=== PATIENT | male | born 1960 | race Caucasian/White ===

== ENCOUNTER 2016-12-08 15:28 | Emergency (ER) | payer OTHER ==
[2016-12-08 15:44] VITALS: BP 151/97
--- NOTE | 2016-12-08 16:53 | UC ---
Throat Pain/Nasal Giovanny HPI - HPI Summary HPI Summary: This is a 56 yo gentleman with HTN and GAIL who presented with a 1d h/o nasal congestion. He has a mild ST and cough. Some chills last night. No SOB. No rash. No abd pain, n/v. - History of Current Complaint Chief Complaint: UCRespiratory Stated Complaint: SINUS PAIN - Allergies/Home Medications Allergies/Adverse Reactions: Allergies Allergy/AdvReac Type Severity Reaction Status Date / Time No Known Allergies Allergy Verified 12/08/16 15:45 PMH/Surg Hx/FS Hx/Imm Hx Previously Healthy: No - GAIL, ADD Cardiovascular History: Hypertension - Surgical History Surgical History: Yes Surgery Procedure, Year, and Place: Veins. Tonsils - Social History Alcohol Use: None Substance Use Type: None Smoking Status (MU): Never Smoked Tobacco Review of Systems Constitutional: Chills Skin: Negative Eyes: Negative ENT: Sinus Congestion, Sinus Pain/Tenderness Respiratory: Negative Cardiovascular: Negative Gastrointestinal: Negative Genitourinary: Negative Motor: Negative Neurovascular: Negative Musculoskeletal: Negative Neurological: Negative Psychological: Negative All Other Systems Reviewed And Are Negative: Yes Physical Exam Triage Information Reviewed: Yes Appearance: Well-Appearing Vital Signs: Initial Vital Signs Temp 99.4 F 12/08/16 15:41 Pulse 85 12/08/16 15:41 Resp 12 12/08/16 15:41 BP 151/97 12/08/16 15:41 Pulse Ox 97 12/08/16 15:41 Vital Signs Reviewed: Yes ENT: Positive: Pharynx normal, Nasal drainage, TMs normal, Other: - mild maxillary sinus TTP bilaterally Neck: Positive: Supple, Nontender, No Lymphadenopathy Respiratory: Positive: Lungs clear, Normal breath sounds. Negative: Crackles, Rhonchi, Wheezing Cardiovascular: Positive: RRR, No Murmur Throat Pain/Nasal Course/Dx - Course Course Of Treatment: This is a 56 yo gentleman with HTN and GAIL who presented with c/o nasal congestion and sinus pressure for 24 hours. Exam benign. Likely viral URI. Recommend symptomatic care, but avoid stimulant decongestants due to his HTN. - Differential Dx/Diagnosis Differential Diagnosis/HQI/PQRI: Pharyngitis, Sinusitis, Tonsillitis, URI Provider Diagnoses: 1. URI Discharge - Discharge Plan Condition: Stable Disposition: HOME Prescriptions: Loratadine [Loratadine Allergy Relief] 10 mg PO DAILY PRN #15 tab PRN Reason: Congestion Oxymetazoline HCl [Afrin Nasal [place]] 0.05 % NA Q4H PRN #1 bottle PRN Reason: Congestion Patient Education Materials: Upper Respiratory Infection (ED) Referrals: Sha Rivera MD [Primary Care Provider] - Additional Instructions: Activity: As tolerated Instructions: 1. Use nasal spray and decongestant as directed
== END 2016-12-08 16:50 | disposition home or self-care (01) ==
LOC: UCEAST 15:28
DX: J06.9 Acute upper respiratory infection, unspecified (principal); I10 Essential (primary) hypertension; G47.33 Obstructive sleep apnea (adult) (pediatric)
CPT/HCPCS: 99212; G0463